=== PATIENT | female | born 1970 | race Caucasian/White ===

== ENCOUNTER → 2017-10-07 | Outpatient (CLI) | payer OTHER ==
[2017-10-07 09:07] VITALS: BP 117/81; PULSE 79; TEMP 96.7; BMI 31.0
--- NOTE | 2017-10-07 09:54 | P.HPOB ---
History of Present Illness H&P Date: 10/07/17 Chief Complaint: The patient is here for her routine gynecologic exam and mammogram. This is a 47-year-old with an LMP of 08/26/2017. The patient states or periods have been unpredictable since the beginning of the year. She had no periods in May or June. She had a normal menstrual period in July. She has been bleeding since 08/26/2017 and the flow has been variable. On the heavier days of flow, she can soak through a whole pad and one half hours. The flow has been later today. She felt warmer in May and June but more recently has not had me hot flashes. Her menses were regular prior to May. It has been about 3 years since her last pelvic exam Review of Systems She has gained about 15 pounds over the last year. She thinks this may be related to her abnormal thyroid function. She denies respiratory, cardiac, or G.I. problems. Past Medical History Past Medical History: GERD/Reflux, Thyroid Disorder (Hypothyroid after radioactive iodine treatment.) Additional Past Medical History / Comment(s): Restless leg syndrome and PTSD. Past MEDICAID NURSE history; she has no history of STDs. History of Any Multi-Drug Resistant Organisms: None Reported Past Surgical History: Orthopedic Surgery (Multiple bilateral knee surgeries), Tonsillectomy, Tubal Ligation Additional Past Surgical History / Comment(s): both knee 2000,2014; breast implants 2003, spinal chord stimulator 2015, bladder suspension 2016, Past Psychological History: PTSD Smoking Status: Current every day smoker (1 pack per day) Past Alcohol Use History: Occasional (3 per month) Past Drug Use History: None Reported Additional History: She is and is planning to get in October 2017. She is spin with her partner since 2014. She is a disabled vet. - Past Family History Father Family Medical History: Unable to Obtain (Adopted) Additional Family Medical History / Comment(s): No family history is known since she was adopted. Medications and Allergies Home Medications and Allergies Comment(s): The patient knows she is taking gabapentin TID but is unsure of the dose. She also takes other medications but does not know the names of them at this time. She states she will call with those names. Allergies Allergy/AdvReac Type Severity Reaction Status Date / Time amoxicillin Allergy Rash/Hives Verified 10/07/17 09:45 Exam - Vital Signs Vital signs: Vital Signs Temp Pulse BP 10/07/17 09:03 96.7 F L 79 117/81 Intake and Output 10/06/17 10/07/17 10/07/17 22:59 06:59 14:59 Other: Weight 95.254 kg Height 5'9", BMI 31.0. This is a well-developed well-nourished white female who is alert and oriented times 3 in no acute distress. HEENT: Within normal limits. NECK: Supple without mass or thyromegaly. CHEST AND LUNGS: Clear to auscultation. HEART: Regular rate and rhythm. BREASTS: Are without mass or discharge. Breasts are consistent with bilateral implants AXILLARY EXAM: Negative for adenopathy. BACK: Negative for CVA tenderness. ABDOMEN: Soft, nontender, without palpable masses. PELVIC EXAM: Normal external genitalia with menstrual type blood present. Cervix and vagina appear normal with menstrual type blood present. There is no unusual discharge. There is no evidence of prolapse. The uterus is midposition , nongravid size and nontender. There are no palpable adnexal masses or tenderness. RECTAL EXAM: negative for mass or tenderness. Occult blood testing was not performed because of the menstrual type of blood in the area. EXTREMITIES: Nontender. IMPRESSION: 1. 47-year-old female with dysfunctional uterine bleeding for approximately 6 weeks. This is probably perimenopausal dysfunctional uterine bleeding. Other possible causes would include uncontrolled thyroid functions and less likely neoplastic endometrial changes. 2. Unremarkable gynecologic exam. PLAN: 1. Pap smear was performed. 2. Self-professed awareness was discussed. 3. Screening mammogram will be done today. 4. We have had a long discussion regarding her dysfunctional bleeding and possible causes. The patient will be scheduled for an endometrial biopsy in the near future. 5. CBC will be drawn today. I recommended that she take a daily iron supplement at this time. 6. If benign findings are noted with her endometrial biopsy, consider cyclic progestin therapy. 7. The patient was instructed to go to the emergency room if she has excessive bleeding, if feeling lightheaded or faint or if problems. 8. She will also return in one year and PRN.
[2017-10-07 10:18] LABS: HCT 47.4 % (34.0-46.0); HGB 15.9 gm/dL (11.4-16.0); MCH 32.8 pg (25.0-35.0); MCHC 33.5 g/dL (31.0-37.0); Mean Platelet Volume 6.9; Platelet Count 281 k/uL (150-450); RBC 4.84 m/uL (3.80-5.40); RDW 14.1 % (11.5-15.5)
--- NOTE | 2017-10-10 10:49 | MM ---
Reason for exam: screening (asymptomatic). History: Patient history of other cancer. Saline implants in both breasts, 2004. Physical Findings: A clinical breast exam by your physician is recommended on an annual basis and results should be correlated with mammographic findings. MG Screening Mammo Implant/CAD Bilateral CC, MLO, and ID view(s) were taken. No prior studies available for comparison. The breast tissue is heterogeneously dense. This may lower the sensitivity of mammography. No suspicious abnormality in the right breast. Left anterior depth lower inner quadrant focal asymmetry 3cm from nipple on CC view. ASSESSMENT: Incomplete: need additional imaging evaluation, BI-RAD 0 RECOMMENDATION: Special view mammogram of the left breast. If lesion persists on supplemental views, image directed ultrasound is recommended. [facility] will attempt to contact patient to return for supplemental views and ultrasound if indicated.
== END | disposition home or self-care (01) ==
LOC: WWCWWP 08:40
PROVIDERS: ATTEND Obstetrics & Gynecology
DX: Z12.31 Encounter for screening mammogram for malignant neoplasm of breast (principal); N92.1 Excessive and frequent menstruation with irregular cycle; N93.8 Other specified abnormal uterine and vaginal bleeding
CPT/HCPCS: 36415; 77067; 85027

== ENCOUNTER → 2017-10-08 | Day surgery (SDC) | payer OTHER, MEDICARE ==
[2017-10-08 12:32] VITALS: BP 117/77; PULSE 90; RESP 16; TEMP 98; BMI 31.0
--- NOTE | 2017-10-08 13:49 | P.PCN ---
Date of Procedure: 10/08/17 Preoperative Diagnosis: Dysfunctional uterine bleeding Postoperative Diagnosis: Dysfunctional uterine bleeding Procedure(s) Performed: Endometrial biopsy Anesthesia: none Surgeon: Brian Taylor Estimated Blood Loss (ml): 1 Pathology: other (Endometrial tissue) Condition: stable Disposition: same day Indications for Procedure: This was a 47-year-old female who had 6 weeks of dysfunctional uterine bleeding with variable flow. This started on 08/26/2017. She had 2 months of amenorrhea followed by a normal. In July prior to her LMP. Operative Findings: The uterus is non-gravid size. There are no palpable adnexal masses or tenderness. There was scant blood in the vagina. The uterus sounded to 7 cm. Description of Procedure: The endometrial biopsy procedure was described to the patient. All of her questions were answered. The patient was placed in the lithotomy position. Bimanual examination was performed. The uterus is mid-positioned and is non- gravid size. The speculum was inserted and the cervix and vagina were prepped with betadine solution. The 3mm endometrial biopsy curette was placed to the fundus without difficulty. The uterus sounded to 7 cm. as negative pressure was applied, 70% of the instrument was filled with blood. A [id number] rotating motion was used and a small amount of tissue was obtained and sent for pathological examination. The procedure was repeated times one since the 1st sample had mostly blood. The 2nd time this was done, a moderate amount of tissue is obtained. The patient tolerated the procedure well. There were no complications. The post procedure blood pressure was 108/79. Post procedure instructions were given to the patient. The patient will be started on cyclic Provera. She will take Provera 10 mg PO Q day on days 16 through 27 of the month. The pathology will be reviewed with the patient when it is back. We will then determine if other options are necessary.
--- NOTE | 2017-10-08 13:55 | P.PN ---
Progress Note - Text Progress Note Date: 10/08/17 I have notified the patient of her normal hemoglobin from 10/07/2017. Because of that dysfunctional uterine bleeding, I have recommended that she take a multivitamin with iron daily.
--- NOTE | 2017-10-14 17:47 | P.PN ---
Progress Note - Text Progress Note Date: 10/14/17 OUTPATIENT FOLLOW-UP NOTE TEST(S)/RESULTS: the endometrial biopsy pathology from 10/08/2017 was benign. The Pap smear from 10/07/2017 was unsatisfactory because of numerous red blood cells. METHOD OF NOTIFICATION: the patient was notified of these test results by phone. PATIENT COMMENTS: the patient states her bleeding has stopped while taking Provera. DIAGNOSIS: dysfunctional uterine bleeding with benign endometrial biopsy and unsatisfactory Pap smear. DISCUSSION: the patient was advised to return for repeat Pap smear. She will continue to use cyclic Provera for 12 days each month starting on day 16 of the month. PLAN: she will continue cyclic Provera and will keep a menstrual calendar. She will return in 3 months for reevaluation and to repeat the Pap smear.
== END ==
LOC: WWCWWP 11:57
PROVIDERS: ATTEND Obstetrics & Gynecology
DX: N93.8 Other specified abnormal uterine and vaginal bleeding (principal); N91.2 Amenorrhea, unspecified
CPT/HCPCS: 88305

== ENCOUNTER → 2017-10-14 | Outpatient (CLI) | payer OTHER ==
--- NOTE | 2017-10-14 09:54 | MM ---
Reason for exam: additional evaluation requested from abnormal screening. Last mammogram was performed less than 1 month ago. History: Patient history of other cancer. Saline implants in both breasts, 2004. Physical Findings: Nurse did not find any significant physical abnormalities on exam. MG Work Up Mamm w CAD LT Spot compression CC, spot compression MLO, ID, and LM view(s) were taken of the left breast. Prior study comparison: October 07, 2017, bilateral MG screening mammo implant/CAD. The breast tissue is heterogeneously dense. This may lower the sensitivity of mammography. Finding: There is a partially persistent 7 mm equal density (isodense) mass located 4 cm from the nipple in the lower inner quadrant, anterior position of the left breast on compression CC view. These results were verbally communicated with the patient and result sheet given to the patient on 10/14/17. ASSESSMENT: Incomplete: need additional imaging evaluation, BI-RAD 0 RECOMMENDATION: Ultrasound of the left breast.
--- NOTE | 2017-10-14 09:55 | USB ---
Reason for exam: additional evaluation requested from abnormal screening. History: Patient history of other cancer. Saline implants in both breasts, 2004. US Breast Workup Limited LT Left limited breast ultrasound including focal area of concern, retroareolar and axilla demonstrates a 0.5 x 0.3 x 0.3cm lesion too small to characterize at 9 o'clock. These results were verbally communicated with the patient and result sheet given to the patient on 10/14/17. ASSESSMENT: Probably benign, BI-RAD 3 RECOMMENDATION: Follow-up diagnostic mammogram and ultrasound of the left breast in 6 months.
--- NOTE | 2017-10-15 08:28 | P.PN ---
Progress Note - Text Progress Note Date: 10/15/17 The patient is aware of her left breast workup results from 10/14/2017. In order slip for a left diagnostic mammogram and ultrasound in 6 months was sent to the patient.
== END | disposition home or self-care (01) ==
LOC: RADMAMWWP 07:19
PROVIDERS: ATTEND Obstetrics & Gynecology
DX: R92.8 Other abnormal and inconclusive findings on diagnostic imaging of breast (principal)
CPT/HCPCS: 77065